=== PATIENT | female | born 1935 | race Caucasian/White ===

== ENCOUNTER 2017-02-17 09:26 | Inpatient (IN) | payer BC, MEDICARE, OTHER ==
[~2017-02-17] VITALS: Ht 160 cm; Wt 110.7 kg
[~2017-02-17 09:26] MED LIST: ALLOPURINOL100 MG PO; ASPIR 8181 MG PO; ASPIR-LOW81 MG; ATIVAN0.5 MG PO; CIPRO500 MG; COLACE100 MG PO; DEMADEX100 MG; DIOVAN320 MG; HUMULIN-R100 UNITS/; HYDRALAZINE HCL25 MG; IRON325 MG PO; ISOSORBIDE DINI30 MG; LANTUS100 UNITS/; LEVSIN0.125 MG; LORAZEPAM2 MG; LOVENOX60 MG/0.6; METOPROLOL SUCC25 MG PO; MINITRAN1 EAC1; NEXIUM40 MG; NOVOLOG100 UNITS/; PRAVASTATIN SOD80 MG PO; PROTONIX40 MG PO; RANEXA1000 MG PO; SYNTHROID200 MCG; TICLOPIDINE HC250 MG; TOPROL XL100 MG; TORSEMIDE20 MG PO; ZETIA10 MG; [UNRECOGNIZED DRUG - OTHER]
[2017-02-17] MEDS ORDERED: HYDROMORPHONE 1MG/1ML INJ IV STA (09:55)
[2017-02-17] MEDS ORDERED: DEXAMETHASONE SOD PHOS INJ 4 MG/ML VIAL IV ONE (10:00)
[2017-02-17] MEDS ORDERED: HYDROMORPHONE 2MG/ML INJ IV ONE (10:20)
[2017-02-17] MEDS ORDERED: ONDANSETRON HCL INJ 2 MG/ML VIAL IV ONE (10:20)
[2017-02-17] MEDS ORDERED: MAALOX/LIDOCAINE/BENADRYL 120 ML BTL PO ONE (10:30)
--- NOTE | 2017-02-17 11:08 | Diagnostic Imaging Report ---
History: Low back pain and sciatica Comparison studies: None Technique: Axial images were obtained from T11 through the sacrum. Coronal and sagittal images reconstructed from the axial data. Intravenous contrast: None Findings: Number of non-rib bearing vertebral bodies: 5 Alignment: Normal lordosis. No scoliosis. Soft tissues: No abnormalities. Paraspinal muscles: Unremarkable. Vertebrae: No fractures or infection. Lytic lesion with a permeated appearance is seen at the right iliac bone with loss of fat plane with the ipsilateral iliac is muscle. Partially visualized a second lytic lesion is seen at the right acetabular roof. Degenerative changes: Partially visualized decreased intervertebral space and endplate sclerosis with vacuum phenomenon at T11-T12. L1-L2: No abnormalities. L2-L3: Asymmetric left disc bulge results in mild left foraminal narrowing L3-L4: Mild facet hypertrophy with patent canal and foramina L4-L5: Disc degeneration with decreased intervertebral space. Asymmetric left disc bulge, moderate facet hypertrophy and ligamentum flavum thickening results in mild canal stenosis and mild bilateral foraminal narrowing. L5-S1: No abnormalities. Sacroiliac joints: Mild degenerative changes. Atherosclerotic calcifications of the abdominal aorta and branches. Partially visualized inferior vena cava filter. Partially visualized soft tissue thickening of the left medial pleura. And spiculated right lower lobe 1.5 cm nodule. IMPRESSION: 1. No acute spinal abnormality. 2. Moderate facet hypertrophy and asymmetric left disc bulge at L4-L5 results in mild canal stenosis and mild bilateral foraminal narrowing. Other degenerative changes as described above. 3. Lytic lesion in the right iliac bone, metastatic deposits is suspected, nonemergent further evaluation recommended. 4. Pleural-based medial left soft tissue thickening. Partially visualized 1.5 cm spiculated nodule in the right lower lobe. Further evaluation with CT thorax is recommended. Signed by: DR Jacinto Skinner M.D. on 02/17/2017 11:05 AM
[2017-02-17] MEDS ORDERED: MORPHINE SULFATE 2 MG/ML SYR IV STA (13:11)
[2017-02-17 15:30] LABS: BASOPHILS % 0.4 % (0.0-1.0); EOSINOPHILS # (AUTO) 0.3 (0.0-0.4); EOSINOPHILS % 3.6 % (0.0-6.0); HEMATOCRIT 36.1 % (34.2-44.1); HEMOGLOBIN 11.5 g/dL (12.0-16.0); LYMPHOCYTES # (AUTO) 0.7 (1.0-3.2); LYMPHOCYTES % 9.5 % (18.0-39.1); MEAN CORPUSCULAR HEMOGLOBIN 31.9 pg (28-32); MEAN CORPUSCULAR HGB CONC 31.9 g/dL (31-35); MEAN CORPUSCULAR VOLUME 100.3 fL (81-99); MONOCYTES # (AUTO) 0.6 (0.2-0.8); MONOCYTES % 7.6 % (4.4-11.3); NEUTROPHILS # (AUTO) 5.7 (2.1-6.9); NEUTROPHILS % 78.5 % (38.7-80.0); PLATELET COUNT 207 x10e3/uL (140-360); RED CELL DISTRIBUTION WIDTH 14.4 % (11.7-14.4)
[2017-02-17] MEDS ORDERED: ONDANSETRON HCL INJ 2 MG/ML VIAL IV PRN (15:30)
[2017-02-17] MEDS ORDERED: SODIUM CHLORIDE FLUSH 10 ML SYR INJ PRN (15:30)
[2017-02-17] MEDS ORDERED: HYDROMORPHONE 1MG/1ML INJ IV PRN (15:30)
[2017-02-17 15:41] LABS: ALBUMIN 3.1 g/dL (3.5-5.0); ALBUMIN/GLOBULIN RATIO 0.7 (0.8-2.0); CALCIUM 9.8 mg/dL (8.4-10.2); CREATININE, SERUM 1.97 mg/dL (0.57-1.11)
[2017-02-17] MEDS ORDERED: ISOSORBIDE MONO20 MG PO (18:02)
[2017-02-17] MEDS ORDERED: LEVOTHYROXINE50 MCG PO (18:18)
[2017-02-17] MEDS ORDERED: NITROGLYCERIN0.4 MG SL (18:18)
[2017-02-17] MEDS ORDERED: LINZESS PO (18:18)
[2017-02-17] MEDS ORDERED: NORCO 5-325 TA1 EACH PO (18:18)
[2017-02-17] MEDS ORDERED: VITAMIN D400 UNIT PO (18:18)
[2017-02-17] MEDS ORDERED: NITROGLYCERIN1 EAC1 (18:18)
[2017-02-17] MEDS ORDERED: [UNRECOGNIZED DRUG - OTHER] PO (18:18)
[2017-02-17] MEDS ORDERED: SIMVASTATIN40 MG PO (18:19)
[2017-02-17] MEDS ORDERED: NOVOLOG100 UNITS1 (18:19)
--- NOTE | 2017-02-17 18:19 | Diagnostic Imaging Report ---
PROCEDURE:CT CHEST WITHOUT CONTRAST COMPARISON:CT lumbar spine 1025 hrs., chest x-ray 12/06/12 INDICATIONS:SPICULATED RIGHT LOWER LOBE MASS TECHNIQUE: Axial CT images of the chest were obtained from the lung apices to the adrenal glands. Coronal and sagittal reformations were made available for review. No intravenous contrast was administered. RADIATION DOSE: Total DLP: 436.2 mGy*cm Estimated effective dose: (DLP x 0.014 x size factor) mSv FINDINGS: Lungs: Right lung: Diffusely hyperinflated. There is prominent smooth pulmonary interstitium and diffuse bronchial wall thickening and surgical bronchiectasis. A posterior layering effusion measures 12 mm in the costophrenic angle with overlying atelectasis. There is posterior upper lobe subsegmental atelectasis. Wispy basilar subsegmental atelectasis are also present in the anterior upper lobe and middle lobe. There is no discrete mass. Left lung: Mild volume loss of the left hemithorax. Diffusely hyperinflated with smooth thickening of the pulmonary interstitium. There is subsegmental atelectasis of the posterior basal segment of the lower lobe and band of subsegmental atelectasis throughout the lingula and upper lobe. There is no discrete mass. An inferior and posterolateral pleural effusion measures 9 mm. There is subpleural fat deposition in the anterior chest between ribs 4 through 6. Pleura:There is no evidence of pneumothorax. Heart \T\ Mediastinum:The heart is enlarged with cardiac bypass changes and extensive calcifications of the coronary arteries. There are indications of aortic and mitral valves. No pericardial effusion. The esophagus is collapsed. Lymph nodes: No enlarged axillary or supraclavicular lymph nodes. Mediastinal lymph nodes measure up to 16 mm. Thyroid/base of neck: The thyroid gland is normal in size. A calcified nodule in the left lobe measures 10 mm. Upper abdomen:The liver appears enlarged without evidence of mass. The gallbladder is absent. There is diffuse pancreas lipomatosis. The spleen is normal in size. No adrenal mass. Extensive calcifications are present throughout the aorta and celiac artery. Musculoskeletal:Wedging of T11 with inferior endplate compression and vacuum disc phenomenon at T11-12. The spinal canal at this level is patent. There are moderate degenerative changes throughout the spine superimposed on dextroscoliosis of the upper thoracic spine. There is a healing fracture of the left seventh rib, posterior aspect. There are no lytic lesions. CONCLUSION: 1. The abnormality in the right posterior costophrenic angle on lumbar spine CT is not visualized on this exam. However, a pleural effusion has developed in the interim with associated atelectasis. The abnormality in the medial left lower lobe on lumbar spine CT corresponds to subsegmental atelectasis. 2. COPD and multifocal atelectasis in the right and left lungs. Prominence of the pulmonary interstitium is suggestive of CHF. 3. Chronic bronchitis and mild clinical bronchiectasis. 4. Cardiomegaly with postoperative changes as described above. Severe atherosclerosis. 5. Calcified nodule in the left thyroid lobe. 6. Suspect hepatomegaly. Pancreas lipomatosis. 7. Wedging of T11 as described above. 8. Healing left posterior rib fracture. Dictated by: Justin Sheldon M.D. on 02/17/2017 at 18:28 Electronically approved by: Justin Sheldon M.D. on 02/17/2017 at 18:28
[2017-02-17] MEDS ORDERED: INSULIN GLARGINE SC (18:20)
[2017-02-17] MEDS: HYDROMORPHONE 2MG/ML INJ IV PRN (18:26)
[2017-02-17] MEDS ORDERED: DEXTROSE 50% SYRINGE 50 ML IV PRN (18:30)
[2017-02-17 19:00] VITALS: BP 141/63
[2017-02-17 19:45] VITALS: BP 141/63
[2017-02-17] MEDS: PREDNISONE 10 MG TAB PO SCH (21:22)
[2017-02-17] MEDS: INSULIN REGULAR, HUMAN 100 UNIT/1 ML 3ML VIAL SQ SCH (21:22)
[2017-02-18] MEDS ORDERED: METOPROLOL TART25 MG PO (00:52)
[2017-02-18 04:00] VITALS: BP 120/55
[2017-02-18 08:26] VITALS: BP 156/70
[2017-02-18] MEDS: LIDOCAINE 5% PATCH TP SCH (08:44)
[2017-02-18] MEDS: PREDNISONE 10 MG TAB PO SCH ×3 (08:44→23:18)
[2017-02-18] MEDS: INSULIN REGULAR, HUMAN 100 UNIT/1 ML 3ML VIAL SQ SCH ×4 (08:51→22:00)
[2017-02-18] MEDS: HYDROMORPHONE 2MG/ML INJ IV PRN ×3 (09:17→17:58)
[2017-02-18] MEDS ORDERED: NITROGLYCERIN 0.4 MG SUBL SL SCH (09:30)
[2017-02-18] MEDS ORDERED: NITROGLYCERIN 0.4 MG SUBL SL PRN (09:30)
[2017-02-18] MEDS ORDERED: CHOLECALCIFEROL 400 UNIT TAB PO SCH (10:30)
[2017-02-18] MEDS: HYDROCODONE/APAP 5MG-325MG TAB PO PRN (11:19)
--- NOTE | 2017-02-18 11:48 | Diagnostic Imaging Report ---
Bone Scan, three-phase Reason for exam: 81 F with back and bilateral hip pain Radiopharmaceutical: Tc-99m MDP 27 mCi Comparison: CT lumbar spine 02/17/2017 Following intravenous administration of the radiopharmaceutical, dynamic flow and immediate blood pool images of the pelvis and hips followed by delayed selected spot images were obtained. Flow and blood pool images show diffusely symmetric distribution of tracer activity to the lower lumbar spine, pelvis and hips with focal markedly increased tracer in the left intertrochanteric femur and subtly increased tracer is the right iliac wing. There is also a sort tissue vascular blush in the right hemipelvis on the blood pool images. Focal markedly increased tracer is seen in the left intertrochanteric femur. An additional focus of increased tracer is seen in the superior spine of the right iliac wing. Impression: 1. Acute osteoblastic process in the intertrochanteric left femur may be due to trauma such as recent fracture or bone metastasis. Inflammatory process is much less likely. 2. Vascular blush in the right hemipelvis is worrisome for mass versus large arteriovenous malformation. CT abdomen is warranted. 3. Total body bone scan is indicated to complete metastatic work-up. Signed by: Dr. Nena Arango M.D. on 02/18/2017 11:44 AM
[2017-02-18 11:59] VITALS: BP 172/84
--- NOTE | 2017-02-18 13:55 | Diagnostic Imaging Report ---
CT Abdomen And Pelvis without Intravenous Contrast INDICATION: Iliac metastases TECHNIQUE: Thin collimation axial images obtained from the diaphragm to the level of the pubic symphysis. RADIATION DOSE: Total DLP: 843.4 mGy*cm Estimated effective dose: (DLP x 0.015 x size factor) mSv CTDIvol has been reviewed. It is below the limits set by the Radiation Protocol Committee (RPC). COMPARISON: CT lumbar spine 02/17/2017, bone scan 02/17/2017. ABDOMEN FINDINGS: Lung Bases: Patchy bibasilar airspace opacities suggestive atelectasis. There is more confluent atelectasis in the posterior costophrenic angles. Small pleural effusions are present. No discrete soft tissue mass. The heart is enlarged with coronary artery calcifications. Visualized medial sternotomy wires are intact. Liver: Normal attenuation. No evidence for mass. Gallbladder: Present and appears normal. No biliary ductal dilatation. Pancreas: Diffuse fatty atrophy without mass or ductal dilatation. Spleen: Normal in size. No evidence of mass. A splenule in the anterior left upper quadrant measures 10 mm. Adrenal Glands: No evidence for mass. Kidneys: Right: Atrophic. No hydronephrosis or cortical mass. Left: Atrophic. No hydronephrosis or cortical mass. No cortical mass. No hydronephrosis. Lymph Nodes: No enlarged abdominal or periaortic lymph nodes. Aorta: Diffusely calcified as are the celiac and superior mesenteric arteries. No aneurysmal dilatation. IVC filter terminates below the confluence of the renal veins PELVIS FINDINGS: Bowel: Small Bowel: Normal in caliber with normal wall thickness. Large Bowel: Diverticulosis coli. No associated inflammation. Appendix: Not visualized and may be absent or collapsed. Bladder: Normal. The uterus is absent. There are no adnexal masses. There is a small amount of presacral edema. No mesenteric, pelvic, or inguinal lymph nodes. Bones: There is a lytic lesion in the roof of the right acetabulum and a permeative lesion in the right iliac weighing with associated soft tissue swelling. There is a lytic lesion in the posterior aspect of S1. Wedging of the T11 vertebral body is present with associated vacuum disc phenomenon at T11-12. There are no lytic or blastic lesions in the visualized ribs. Soft tissues: Umbilical hernia contains fat with an aperture of 4 cm. No fluid in the hernia sac. There is edema in the lateral flanks. No solid soft tissue mass to suggest neoplasm. IMPRESSION: 1. No soft tissue mass or lymphadenopathy in the abdomen or pelvis to suggest a neoplastic process. 2. Osseous metastases as described above. 3. Diverticulosis coli. No evidence for bowel obstruction or inflammation. 4. Atrophic kidneys. 5. Atherosclerosis. IVC filter. 6. Bibasilar airspace opacities suggestive of atelectasis and small pleural effusions. Small airways disease. 7. Severe pancreas lipomatosis. Signed by: Dr. Justin Sheldon MD on 02/18/2017 1:51 PM
--- NOTE | 2017-02-18 14:56 | Diagnostic Imaging Report ---
Hip complete CPT code: 72334 Indication: Metastatic bone lesions Technique: AP and frogleg views of left hip obtained. Comparison: Bone scan 01/18/2017, CT abdomen/pelvis related 01/19/2017 Findings: No evidence of fracture or dislocation. Increased metabolic activity in the left femoral neck on bone scan corresponds to a permeative lesion barely visible in the lesser trochanter on CT. It is not visible radiographically. The focus of metabolic activity in the right iliac crest is not visible by x-ray.. The lytic lucency on CT in the roof of the right acetabulum is not visible by x-ray. Diffuse atherosclerotic calcifications are present. IMPRESSION: 1. Left hip properly located. No convincing evidence for fracture. 2. Permeative hypermetabolic lesion in the proximal left femur is poorly visualized radiographically and is barely visible by CT. 3. A lytic lesion in the roof of the right acetabulum is not visible radiographically. 4. Permeative lesion in the right iliac wing is not visible by x-ray. Signed by: Dr. Justin Sheldon MD on 02/18/2017 2:52 PM
[2017-02-18 16:19] VITALS: BP 160/76
[2017-02-18] MEDS: [UNRECOGNIZED DRUG - OTHER] PO SCH (17:00)
[2017-02-18] MEDS ORDERED: ENOXAPARIN SOD INJ 40 MG/0.4 ML SYR SC SCH (17:00)
[2017-02-18] MEDS: METOPROLOL TARTRATE 25 MG TAB PO SCH (17:01)
[2017-02-18] MEDS: PANTOPRAZOLE SODIUM 40 MG SUSPDR.PKT PO SCH (17:01)
[2017-02-18] MEDS: ALLOPURINOL 100 MG TAB PO SCH (17:02)
[2017-02-18] MEDS: ENOXAPARIN 30 MG/0.3 ML SYR SC SCH (17:02)
--- NOTE | 2017-02-18 18:08 | History and Physical ---
CHIEF COMPLAINT: Intractable pain to the lower back and hip. HISTORY OF PRESENT ILLNESS: A 81-year-old female patient with a history of degenerative joint disease, congestive heart failure, coronary artery disease, diabetes mellitus, wheelchair bound, has chronic pain from arthritis. However, lately her pain was getting worse. Patient was seen by orthopedics and scheduled to have a CT. She came to the office with worsening pain and unable to transfer. Patient was localizing the pain to the lower back, both hips and also was having vomiting and dry heaves. She was given Phenergan injection, and prescribed fentanyl. Patient slept at home. However, she had pain that got worse, so she came to the emergency room. Patient had a CT of the lumbar spine, which showed questionable osteolytic lesion on the right iliac bone, metastatic deposits suspected, and arthritic changes of L4 and L5 spine noted. Also, incidental finding of 1.5 cm spiculated right lower lobe mass noted. She was admitted for pain control and workup for her pain. Her CT of the chest was done and was negative for any mass on the right or left lung. However, there was nonspecific changes including subsegmental atelectasis of the lung. Prominence of the pulmonary interstitium suggesting COPD changes noted. Calcified thyroid lobe noted. Bone scan done showing acute osteoblastic process in the intertrochanteric left femur was noted suggesting bone mets versus trauma. Also, vascular brushing in the right hemipelvis worrisome for mass with a large AV malformation noted. Indicated to have a complete metastatic workup. PAST MEDICAL HISTORY: Congestive heart failure, coronary artery disease, hypertension, diabetes mellitus, osteoarthritis of left lateral ankle, diabetic foot ulcer, healed, history of DVT and PE, status post IVC filter placement, hyperlipidemia, diabetic neuropathy, chronic kidney disease. SURGICAL HISTORY: Coronary artery bypass surgery, IVC filter placement, ventral hernia. MEDICATIONS 1. Nitroglycerin. 2. Regular insulin. 3. Prednisone 10 mg t.i.d. 4. Pantoprazole. 5. Simvastatin 40 mg daily. 6. Levothyroxine 150 mcg daily. 7. Allopurinol 200 mg b.i.d. 8. Isosorbide 20 mg daily. 9. Ranexa 1000 mg q.12 h. 10. Zofran. 11. Hydromorphone IV p.r.n. ALLERGIES: AMOXICILLIN, ATORVASTATIN, CLOPIDOGREL, IODINE, TETRACYCLINE. PERSONAL HISTORY: No history of smoking, alcohol or drugs. PHYSICAL EXAMINATION VITALS: Weight of 240 pounds, height 63 inches. Blood pressure 120/55, temperature 97.7. HEENT: Normal. NECK: Normal. LUNGS: Clear. CV: Normal. ABDOMEN: Soft and protuberant. Umbilical ventral hernia present. Bowel sounds normal. LOWER EXTREMITIES: Two plus edema present. The patient is extremely uncomfortable, weak and deconditioned. Has generalized pain. No focal weakness. However, she is deconditioned. Needs assistance for transfer. LABS: CBC: White count 7.26, hemoglobin 11.5 and platelets 207,000. Chemistry: Sodium 113, potassium 4, BUN 20, creatinine 0.97. ASSESSMENT 1. Acute intractable pain, cause unspecified: Possible metastatic lesion to be ruled out. 2. Chronic kidney disease. 3. Congestive heart failure, diastolic. 4. Chronic hypothyroidism. PLAN: Oncology consultation with Dr. Morocho. Pain control. Job#: [id number] [place]
[2017-02-18 20:00] VITALS: BP 123/62
[2017-02-18] MEDS: RANOLAZINE 500 MG TABSR PO SCH (23:18)
[2017-02-18] MEDS: [UNRECOGNIZED DRUG - OTHER] SC SCH (23:19)
[2017-02-18] MEDS: SIMVASTATIN 40 MG TAB PO SCH (23:19)
[2017-02-19] VITALS (7 sets, daily range): BP systolic 110–137; BP diastolic 55–74
[2017-02-19] MEDS: HYDROMORPHONE 2MG/ML INJ IV PRN (01:43)
[2017-02-19] MEDS: LEVOTHYROXINE SODIUM 75 MCG TAB PO SCH (07:12)
[2017-02-19] MEDS ORDERED: POLYETHYLENE GLYCOL 3350 17 GM PACK PO PRN (07:45)
[2017-02-19] MEDS: LINZESS 72 MCG PO SCH (08:47)
[2017-02-19] MEDS: PANTOPRAZOLE SODIUM 40 MG SUSPDR.PKT PO SCH ×2 (08:47→16:59)
[2017-02-19] MEDS: ASPIRIN 81 MG CHEW TAB PO SCH (08:47)
[2017-02-19] MEDS: PREDNISONE 10 MG TAB PO SCH ×3 (08:48→22:01)
[2017-02-19] MEDS: ALLOPURINOL 100 MG TAB PO SCH ×2 (08:48→17:00)
[2017-02-19] MEDS: RANOLAZINE 500 MG TABSR PO SCH ×2 (08:48→22:01)
[2017-02-19] MEDS: LIDOCAINE 5% PATCH TP SCH (08:48)
[2017-02-19] MEDS: ISOSORBIDE MONONITRATE 20 MG TAB PO SCH (08:48)
[2017-02-19] MEDS: [UNRECOGNIZED DRUG - OTHER] PO SCH ×2 (08:48→16:39)
[2017-02-19] MEDS: METOPROLOL TARTRATE 25 MG TAB PO SCH ×2 (08:48→17:00)
[2017-02-19] MEDS: HYDROCODONE/APAP 5MG-325MG TAB PO PRN ×2 (08:52→15:22)
[2017-02-19] MEDS: INSULIN REGULAR, HUMAN 100 UNIT/1 ML 3ML VIAL SQ SCH ×4 (08:52→21:00)
[2017-02-19 10:00] LABS: BASOPHILS % 0.1 % (0.0-1.0); EOSINOPHILS % 0.1 % (0.0-6.0); HEMATOCRIT 29.8 % (34.2-44.1); HEMOGLOBIN 9.5 g/dL (12.0-16.0); LYMPHOCYTES # (AUTO) 0.7 (1.0-3.2); MEAN CORPUSCULAR HEMOGLOBIN 32.2 pg (28-32); MEAN CORPUSCULAR HGB CONC 31.9 g/dL (31-35); MONOCYTES # (AUTO) 0.7 (0.2-0.8); MONOCYTES % 6.7 % (4.4-11.3); NEUTROPHILS # (AUTO) 8.5 (2.1-6.9); NEUTROPHILS % 85.6 % (38.7-80.0); PLATELET COUNT 218 x10e3/uL (140-360); RED BLOOD COUNT 2.95 x10e6/uL (3.6-5.1)
--- NOTE | 2017-02-19 10:23 | Consultation ---
DATE OF CONSULTATION: February 18, 2017 REFERRING PHYSICIAN: Dr. Hills. HPI: Patient is a 81-year-old female admitted to the hospital with complaints of severe back pain as well as some constipation. Workup has revealed possible metastatic lesions in the iliac bone with findings that suggest the back pain may due to a spinal process. However, CT of the abdomen was done which revealed an umbilical hernia. Patient says she has had that hernia for a long time and has never caused her any problems. She denies any nausea or vomiting. She does complain of some constipation. Patient has bone lesions suspicious for metastatic disease seen on CT of the abdomen and pelvis. PAST MEDICAL HISTORY: Significant for multiple medical problems, diabetes, hypothyroidism, hypertension, hypercholesterolemia, and chronic constipation. MEDICATIONS: Listed in the chart. ALLERGIES: AMOXICILLIN, ATORVASTATIN, PLAVIX, IODINE, AND TETRACYCLINE. FAMILY HISTORY: Noncontributory. SOCIAL HISTORY: Noncontributory. REVIEW OF SYSTEMS: As stated above, otherwise was negative. PHYSICAL EXAMINATION GENERAL: The patient is awake and alert. VITAL SIGNS: Normal. HEENT: No scleral icterus. NECK: No masses. LUNGS: Equal breath sounds are clear. CARDIAC: Regular rate and rhythm with no murmur. ABDOMEN: Soft. There is mild distention. There is no significant tenderness. There is an umbilical hernia present which is nontender and reducible. EXTREMITIES: No edema. LAB TESTS: White blood cell count is normal. Hemoglobin 11.5, hematocrit 36. Chemistries: Elevated glucose. BUN 28, creatinine 1.97. Alkaline phosphatase elevated 240. ASSESSMENT: A 81-year-old female with diffuse pain, most likely due to what seems to be possibly bony disease, possibly from bony metastasis, although primary is not clear. The umbilical hernia is asymptomatic. It has been present for a long time and no intervention is needed for this. Thank you for asking me to see Ms. Couch. Job#: [id number] [place]
[2017-02-19 10:24] LABS: ALBUMIN 2.6 g/dL (3.5-5.0); ALBUMIN/GLOBULIN RATIO 0.7 (0.8-2.0); CALCIUM 8.9 mg/dL (8.4-10.2); CREATININE, SERUM 1.83 mg/dL (0.57-1.11)
[2017-02-19 10:44] LABS: FERRITIN 187.72 ng/mL (4.63-204.00)
[2017-02-19 10:58] LABS: ANION GAP 12.8 mmol/L (8-16); POTASSIUM 4.8 mmol/L (3.5-5.1)
[2017-02-19 11:10] LABS: FOLATE 10.8 ng/mL (7.0-15.4)
[2017-02-19 13:58] LABS: BILIRUBIN,URINE 3+ (NEGATIVE); CLARITY,URINE CLEAR (CLEAR); COLOR,URINE YELLOW (YELLOW); KETONES,URINE 3+ (NEGATIVE); LEUKOCYTE ESTERASE ,URINE 1+ (NEGATIVE); URINE UROBILINOGEN 12 mg/dL (0.2 - 1)
[2017-02-19 13:59] LABS: NITRITE,URINE POSITIVE (NEGATIVE); PROTEIN,URINE DIPSTICK TRACE (NEGATIVE)
[2017-02-19 14:15] LABS: BACTERIA,URINE FEW /HPF; EPITHELIAL CELLS,URINE MODERATE /LPF; RBC,URINE 0-5 /HPF (0-5); WBC,URINE (MAN) 0-5 /HPF (0-5)
[2017-02-19] MEDS: IRON SUCROSE 200 MG in SODIUM CHLORIDE 0.9% 100 ML 100 ML IV SCH (16:59)
[2017-02-19] MEDS: ENOXAPARIN 30 MG/0.3 ML SYR SC SCH (17:00)
[2017-02-19] MEDS: SIMVASTATIN 40 MG TAB PO SCH (22:01)
[2017-02-19] MEDS: [UNRECOGNIZED DRUG - OTHER] SC SCH (22:01)
[2017-02-20] VITALS: BP 139/59
[2017-02-20 04:00] VITALS: BP 141/65
[2017-02-20] MEDS: HYDROCODONE/APAP 5MG-325MG TAB PO PRN (04:09)
[2017-02-20 06:29] LABS: BASOPHILS % 0.3 % (0.0-1.0); HEMATOCRIT 30.5 % (34.2-44.1); HEMOGLOBIN 9.9 g/dL (12.0-16.0); LYMPHOCYTES # (AUTO) 0.8 (1.0-3.2); LYMPHOCYTES % 11.3 % (18.0-39.1); MEAN CORPUSCULAR HEMOGLOBIN 32.6 pg (28-32); MEAN CORPUSCULAR HGB CONC 32.5 g/dL (31-35); MEAN CORPUSCULAR VOLUME 100.3 fL (81-99); MONOCYTES # (AUTO) 0.6 (0.2-0.8); MONOCYTES % 8.4 % (4.4-11.3); NEUTROPHILS # (AUTO) 5.9 (2.1-6.9); NEUTROPHILS % 79.2 % (38.7-80.0); PLATELET COUNT 205 x10e3/uL (140-360); RED BLOOD COUNT 3.04 x10e6/uL (3.6-5.1); RED CELL DISTRIBUTION WIDTH 13.8 % (11.7-14.4)
[2017-02-20] MEDS: LEVOTHYROXINE SODIUM 75 MCG TAB PO SCH (06:34)
[2017-02-20 07:18] LABS: ALBUMIN 2.6 g/dL (3.5-5.0); ALBUMIN/GLOBULIN RATIO 0.7 (0.8-2.0); ANION GAP 10.2 mmol/L (8-16); CREATININE, SERUM 1.74 mg/dL (0.57-1.11); POTASSIUM 5.2 mmol/L (3.5-5.1)
[2017-02-20 07:40] VITALS: BP 142/65
[2017-02-20] MEDS: LINZESS 72 MCG PO SCH (09:00)
[2017-02-20] MEDS: METOPROLOL TARTRATE 25 MG TAB PO SCH ×2 (09:00→17:54)
[2017-02-20] MEDS: PANTOPRAZOLE SODIUM 40 MG SUSPDR.PKT PO SCH ×2 (09:00→17:53)
[2017-02-20] MEDS: [UNRECOGNIZED DRUG - OTHER] PO SCH ×2 (09:00→17:00)
[2017-02-20] MEDS: INSULIN REGULAR, HUMAN 100 UNIT/1 ML 3ML VIAL SQ SCH ×4 (09:30→21:17)
[2017-02-20] MEDS: CYANOCOBALAMIN 1,000 MCG TAB PO SCH (09:42)
[2017-02-20] MEDS: LIDOCAINE 5% PATCH TP SCH (09:42)
[2017-02-20] MEDS: RANOLAZINE 500 MG TABSR PO SCH ×2 (09:42→21:17)
[2017-02-20] MEDS: ALLOPURINOL 100 MG TAB PO SCH ×2 (09:42→17:54)
[2017-02-20] MEDS: ISOSORBIDE MONONITRATE 20 MG TAB PO SCH (09:42)
[2017-02-20] MEDS: ASPIRIN 81 MG CHEW TAB PO SCH (09:42)
[2017-02-20] MEDS: PREDNISONE 10 MG TAB PO SCH ×3 (09:42→21:16)
[2017-02-20 11:44] VITALS: BP 128/61
[2017-02-20] MEDS: FENTANYL 25 MCG/HR PATCH TOP SCH (12:01)
[2017-02-20] MEDS: IRON SUCROSE 200 MG in SODIUM CHLORIDE 0.9% 100 ML 100 ML IV SCH (15:00)
[2017-02-20] MEDS: ENOXAPARIN 30 MG/0.3 ML SYR SC SCH (17:54)
[2017-02-20 20:44] VITALS: BP 135/63
[2017-02-20] MEDS: [UNRECOGNIZED DRUG - OTHER] SC SCH (21:00)
[2017-02-20] MEDS: SIMVASTATIN 40 MG TAB PO SCH (21:17)
[2017-02-21] VITALS (9 sets, daily range): BP systolic 131–187; BP diastolic 66–84
[2017-02-21] MEDS: HYDROCODONE/APAP 5MG-325MG TAB PO PRN (01:20)
[2017-02-21] MEDS: LEVOTHYROXINE SODIUM 75 MCG TAB PO SCH (05:25)
--- NOTE | 2017-02-21 08:17 | Consultation ---
DATE OF CONSULTATION: February 20, 2017 NEUROLOGICAL CONSULTATION Patient of Dr. Hills. TIME: 1:15 in the evening. REASON FOR CONSULTATION: Chronic back pain. HISTORY: This is a 81-year-old female who has a chronic history of low back pain, radiating to both hips. In the last 2 months, she says this pain has been getting worse, going to the left hip and then to the right hip, has been unable to ambulate. She has been evaluated by orthopedic surgeon, who apparently did some x-ray of the lumbar spine and was giving just pain medication. The pain has been getting worse, the reason for which she came to the hospital for further evaluation. PAST HISTORY: Patient has multiple medical problems including diabetes, hypertension, chronic constipation. SURGERY: She has coronary artery bypass, appendectomy, cholecystectomy, hysterectomy, and surgery of the back and of the right ankle for which reason she has been having difficulty ambulation, was able to ambulate with a walker. The patient denies any headaches. There is no dizziness. No visual disturbance. No speech, no swallowing difficulty. She has long history of complaining of paresthesia of both feet, numbness, tingling sensation going up to below the knee. SOCIAL HISTORY: Noncontributory. GENERAL PHYSICAL EXAMINATION: VITAL SIGNS: She is an obese patient weighing 240 pounds with as mentioned multiple medical problems. Blood pressure was 120/61, pulse 51, temperature 96. LUNGS: Clear to auscultation. HEART: Regular sinus rhythm. ABDOMEN: Complaining of some abdominal pain. MUSCULOSKELETAL: Right lower extremity is edematous up to below the knee. Left leg, no edema, no clubbing. Chronic low back pain. NEUROLOGICAL EXAMINATION: Patient lying down in bed. The right leg as mentioned is swollen. MENTAL STATUS: She is alert. She is oriented x3. Speech clear. CRANIAL NERVES: were normal. MOTOR: Upper extremities, no evidence of weakness in either proximal or distal muscles, neither evidence of wasting of the muscles. Lower extremity, edematous right lower leg. Patient has difficulty in elevating the legs against gravity. Flexion of the hips 4/5 bilaterally, flexion and extension of the knees 5/5, dorsiflexion of the ankle 5/5 on the left and 4/5 on the right, plantarflexion 5/5 on the left and 4/5 on the right. She has limited motion of the ankle because of the surgery. Sensory examination to touch and pinprick, there is hyperesthesia in the stocking distribution of both lower extremities. Vibration sense is absent up to the ankles. Hip motion, internal and external rotation not painful. LABORATORY WORKUP: Reviewing the laboratory workup, CBC: White count 7400 with hemoglobin 9.9, hematocrit 38.5, and platelets 205,000. Chemistry: Sodium 131, potassium 5.2, BUN 46, creatinine is 1.74. Estimated GFR 28. Glucose 267. Liver enzymes are in the normal range. Alkaline phosphatase is elevated 174. Urinalysis, no evidence of infection. IMAGING: CT scan of the lumbar spine showed no evidence of acute abnormality. There is moderate facet hypertrophy and asymmetrical left disk bulge at L4-L5 resulting in mild canal stenosis and mild bilateral foraminal narrowing and diffuse degenerative changes described of the lumbar spine. Lytic lesion in the right iliac bone, metastasis should be ruled out. IMPRESSION: 1. Chronic low back pain secondary to spondylosis. 2. Diabetes mellitus type 2. 3. Peripheral neuropathy, diabetic type, lower extremities. 4. Obesity. 5. Hypertension. RECOMMENDATIONS: Conservative therapy. Continue with pain medication, probably will be pain management for her back. The lytic lesion in the right hip should be ruled out for metastasis, workup is in the process. I explained the patient and her relative present there that there is no evidence to an historical condition of the lower back. The lower back should be treated conservatively. Will follow closely. Thank you. Job#: [id number]
[2017-02-21] MEDS: METOPROLOL TARTRATE 25 MG TAB PO SCH ×2 (08:18→16:48)
[2017-02-21] MEDS: [UNRECOGNIZED DRUG - OTHER] PO SCH ×2 (09:00→17:00)
[2017-02-21] MEDS: LINZESS 72 MCG PO SCH (09:00)
--- NOTE | 2017-02-21 09:05 | Diagnostic Imaging Report ---
Exam: Skeletal survey History: Metastatic disease Comparison: CT abdomen and pelvis without contrast 02/18/2017,, nuclear medicine bone scan 02/17/2017 Findings: Anterior compression deformity of T11 is again noted, as seen on comparison CT. No lytic or blastic lesions are identified in the calvarium. Lytic lesion in the right iliac wing with associated soft tissue component described on comparison CT as well as the lytic lesion in the right acetabular roof are poorly visualized radiographically. Similarly, the left intertrochanteric femoral permeative lesion described on the nuclear medicine bone scan is poorly visualized radiographically. No additional osseous destructive lesions are identified in the visualized appendicular skeleton Lucent lesions in the right scaphoid and capitate are likely degenerative in nature. Postsurgical changes related to resection of the distal right fibula and surgical hardware within the distal tibia. No osseous destructive lesion. Advanced bilateral joint space narrowing with associated marginal erosions involving the proximal and distal interphalangeal joints of the fingers, with associated first carpometacarpal degenerative joint disease. The metacarpophalangeal joints are relatively well-maintained. IVC filter is noted. Postsurgical changes of the mediastinum. Medial left lower lobe airspace opacity described on comparison lumbar spine CT is poorly visualized radiographically. Impression: No plain radiographic evidence of calvarial or appendicular skeletal metastases. Postsurgical and inflammatory arthritic changes as above. Pelvic and left femoral metastases described on comparison CT and nuclear medicine examinations are radiographically occult. Signed by: Dr. Hayes Minaya M.D. on 02/21/2017 9:01 AM
[2017-02-21] MEDS: INSULIN REGULAR, HUMAN 100 UNIT/1 ML 3ML VIAL SQ SCH ×4 (09:20→22:10)
[2017-02-21] MEDS: CYANOCOBALAMIN 1,000 MCG TAB PO SCH (09:44)
[2017-02-21] MEDS: ALLOPURINOL 100 MG TAB PO SCH ×2 (09:44→17:01)
[2017-02-21] MEDS: RANOLAZINE 500 MG TABSR PO SCH ×2 (09:44→22:10)
[2017-02-21] MEDS: LIDOCAINE 5% PATCH TP SCH (09:44)
[2017-02-21] MEDS: ASPIRIN 81 MG CHEW TAB PO SCH (09:44)
[2017-02-21] MEDS: PANTOPRAZOLE SODIUM 40 MG SUSPDR.PKT PO SCH ×2 (09:44→17:01)
[2017-02-21] MEDS: PREDNISONE 10 MG TAB PO SCH ×3 (09:44→22:10)
[2017-02-21] MEDS: ISOSORBIDE MONONITRATE 30 MG TAB CR PO SCH (09:45)
[2017-02-21 11:14] LABS: BASOPHILS % 0.1 % (0.0-1.0); HEMATOCRIT 31.6 % (34.2-44.1); HEMOGLOBIN 10.3 g/dL (12.0-16.0); LYMPHOCYTES # (AUTO) 0.8 (1.0-3.2); LYMPHOCYTES % 8.5 % (18.0-39.1); MEAN CORPUSCULAR HEMOGLOBIN 32.4 pg (28-32); MEAN CORPUSCULAR HGB CONC 32.6 g/dL (31-35); MEAN CORPUSCULAR VOLUME 99.4 fL (81-99); MONOCYTES # (AUTO) 0.7 (0.2-0.8); NEUTROPHILS # (AUTO) 8.1 (2.1-6.9); NEUTROPHILS % 83.3 % (38.7-80.0); PLATELET COUNT 259 x10e3/uL (140-360); RED BLOOD COUNT 3.18 x10e6/uL (3.6-5.1); RED CELL DISTRIBUTION WIDTH 13.7 % (11.7-14.4)
[2017-02-21 11:29] LABS: CALCIUM 8.6 mg/dL (8.4-10.2); CREATININE, SERUM 1.76 mg/dL (0.57-1.11)
[2017-02-21] MEDS: IRON SUCROSE 200 MG in SODIUM CHLORIDE 0.9% 100 ML 100 ML IV SCH (14:00)
--- NOTE | 2017-02-21 15:50 | Consultation ---
DATE OF CONSULTATION: February 21, 2017 REFERRING PHYSICIAN: Dr. Hooker. I would like to thank Dr. Hooker for asking me to see Ms. Couch in consultation. REASONS FOR CONSULTATION 1. Hip pain and back pain, chronic. 2. Metastatic bone disease. 3. Peripheral polyneuropathy of the lower extremities. 4. History of diabetes. 5. CHF. HISTORY: This 81-year-old female, with a history of DJD and congestive heart failure, who has been really not walking for the past year or 2 because of her ankle problems and neuropathy, came into the hospital because she was having significant pain, 1st to her left hip which started about 3 weeks ago and then, when her left hip started feeling better, her right hip started getting worse as far as pain. It was so bad, she had to get fentanyl. The patient had a CT of the lumbar spine, which showed a questionable osteolytic lesion on the right iliac bone as well as arthritic changes at L4-L5 spine. Also, there was a question of a spiculated mass in the right lower lobe. However, further workup did not show any mass. The patient, however, did have atelectasis of the lungs. Bone scan did show an acute osteoblastic process in the IT region of the left femur, and it was mets versus trauma. The patient does not remember falling. Also, there is a question of a possible mass in the pelvis. Workup with oncology has been initiated. In the meantime, rehab-lee, I am being asked to evaluate for rehab needs. PAST MEDICAL HISTORY 1. CHF. 2. Coronary artery disease. 3. Diabetes. 4. Right foot and ankle collapse. 5. 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 6. Hyperlipidemia. 7. Diabetic neuropathy. 8. CKD. SURGERIES: Include IVC placement as well as CABG as well as right ankle surgery/fusion. The patient states when she is sitting around, it does not really hurt that much; but when she gets up and moves, it does hurt mainly in her hips. She does not recall any falling. Sensory-lee, there has been no significant change either. She did get evaluation by Dr. Abraham from a neurologic standpoint and Dr. Meyer from an oncology standpoint. She did also get a CT of the lumbar spine. L1-2 showed no abnormalities. L2-3 showed a symmetric left disk bulge resulting in mild left foraminal narrowing. L3-4 showed mild facet hypertrophy with patent canal and foramina. L4-L5 showed degenerative disk with decreased intervertebral space, asymmetric left disk bulge, moderate facet hypertrophy, and ligamentum flavum thickening resulting in mild canal stenosis and mild foraminal narrowing. L5-S1: No abnormalities. Spiculated right lower lobe 1.5-cm nodule. Also, there was a lytic lesion seen on the right iliac bone. Metastatic deposit suspected. She had a bone scan, which showed an osteoblastic process in the IT left femur, which may be due to trauma such as recent fracture or bone metastases. Inflammatory process is much less likely. Vascular blush in the right hemipelvis is worrisome for mass versus large AVM. She also had a CT of the chest, which showed that the abnormality on the lumbar spine is not visualized on the exam, but there was a pleural effusion. COPD, cardiomegaly, wedging to T11 and a healing left rib fracture. She also had a pelvic x-ray, which showed a lytic lesion on the roof of the right acetabulum that is not visualized radiographically, neither is the lesion in the right iliac wing. PHYSICAL EXAMINATION GENERAL: The patient is awake, alert and oriented. Does not appear to be in much distress at this time. EYES: Gaze is conjugate. ORAL: Tongue is midline. NECK: Supple. HEART: Regular. LUNGS: Diminished breath sounds. Did not take a real deep breath. ABDOMEN: Nondistended. EXTREMITIES: Functional range of motion of the arms as well as the legs. I ranged the legs, and she was actually not having much pain to the hips bilaterally. However, the right ankle is in the dorsiflexed position. That is where she had surgery. She has minimal movement to the right ankle. MANUAL MUSCLE TESTIN-/5 strength in the upper extremities bilaterally. In the left lower extremity, 4-/5 strength throughout. In the right lower extremity, 3+/5 to 4-/5 strength. Again, she is not complaining of much pain to the hips or knees. She has minimal movement to the right ankle. SENSORY: She has diminished sensation to the feet, which is unchanged from before. IMPRESSION 1. Workup for metastatic bone lesions in progress. 2. Chronic pain syndrome. 3. Nonambulatory in the past year or 2 due to her feet being a problem. 4. 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 5. History of congestive heart failure. 6. Diabetes. 7. Peripheral neuropathy. PLAN: Right now, gait is not an issue. We will be focusing on transfers as that is what she was doing premorbidly. She lives with her friend and a son and was basically doing transfer training, pivot transfers to bedside commode and to the wheelchair to get around. If there really is a lesion in the IT area, may have to have orthopedic evaluation to make sure it is nothing that is an impending fracture. Also, if there is an acetabular issue, then there is a problem as well. By doing the transfers, that should make it easier for her. Will follow along with you. Thank you, once again, for allowing me to participate in the care of this very interesting patient. Job#: [id number] RENZO
[2017-02-21] MEDS: ENOXAPARIN 30 MG/0.3 ML SYR SC SCH (17:02)
[2017-02-21] MEDS: [UNRECOGNIZED DRUG - OTHER] SC SCH (22:10)
[2017-02-21] MEDS: SIMVASTATIN 40 MG TAB PO SCH (22:10)
[2017-02-22] VITALS: BP 132/60
[2017-02-22 04:00] VITALS: BP 174/74
[2017-02-22] MEDS: LEVOTHYROXINE SODIUM 75 MCG TAB PO SCH (07:05)
[2017-02-22 08:14] VITALS: BP 168/72
[2017-02-22] MEDS: LINZESS 72 MCG PO SCH (08:43)
[2017-02-22] MEDS: PANTOPRAZOLE SODIUM 40 MG SUSPDR.PKT PO SCH ×2 (08:43→18:26)
[2017-02-22] MEDS: INSULIN REGULAR, HUMAN 100 UNIT/1 ML 3ML VIAL SQ SCH ×4 (08:43→20:59)
[2017-02-22] MEDS: [UNRECOGNIZED DRUG - OTHER] PO SCH ×2 (08:43→17:00)
[2017-02-22] MEDS: ASPIRIN 81 MG CHEW TAB PO SCH (08:43)
[2017-02-22] MEDS: ALLOPURINOL 100 MG TAB PO SCH ×2 (08:44→18:27)
[2017-02-22] MEDS: METOPROLOL TARTRATE 25 MG TAB PO SCH ×2 (08:44→18:27)
[2017-02-22] MEDS: PREDNISONE 10 MG TAB PO SCH ×3 (08:44→20:58)
[2017-02-22] MEDS: CYANOCOBALAMIN 1,000 MCG TAB PO SCH (08:44)
[2017-02-22] MEDS: RANOLAZINE 500 MG TABSR PO SCH ×2 (08:44→20:58)
[2017-02-22] MEDS: ISOSORBIDE MONONITRATE 30 MG TAB CR PO SCH (08:44)
[2017-02-22] MEDS: LIDOCAINE 5% PATCH TP SCH (08:44)
[2017-02-22 12:46] VITALS: BP 169/69
[2017-02-22 16:22] VITALS: BP 156/69
[2017-02-22] MEDS: IRON SUCROSE 200 MG in SODIUM CHLORIDE 0.9% 100 ML 100 ML IV SCH (18:26)
[2017-02-22] MEDS: ENOXAPARIN 30 MG/0.3 ML SYR SC SCH (18:27)
--- NOTE | 2017-02-22 19:59 | Diagnostic Imaging Report ---
Bone Scan, delayed phase INDICATION: 81 F with sciatic neuropathy, chronic low back pain, RLL spiculated mass. Three-phase bone scan 02/17/2017 showed intertrochanteric osteoblastic lesion worrisome for bone metastasis. COMPARISON: 3-phase bone scan 02/17/2017; CT abdo/pelvis 02/18/2017 REPORT: Approximately 3 hours following intravenous administration of 24 mCi of Tc-99m MDP, delayed total body images in the anterior and posterior projections and selected spot images were obtained. Foci of markedly increased tracer activity are seen in the superior spine of the left scapula, T6, T8, T12, left 1st rib anteriorly, left 8th rib posteriorly, left 8th rib laterally, manubrium, sacrum, right iliac wing, right ilium superior to the acetabulum, left acetabulum, left intertrochanteric femur, mid aspect left femoral shaft and left distal lateral femoral condyle. No abnormal accumulation of tracer is seen in the soft tissues or urinary tract. IMPRESSION: Pattern of metastatic bone disease involving the thorax, spine, pelvis and left femur. Signed by: Dr. Nena Arango M.D. on 02/22/2017 7:55 PM
[2017-02-22 20:00] VITALS: BP 151/65
[2017-02-22] MEDS: SIMVASTATIN 40 MG TAB PO SCH (20:58)
[2017-02-22] MEDS: [UNRECOGNIZED DRUG - OTHER] SC SCH (20:59)
[2017-02-23] VITALS (8 sets, daily range): BP systolic 129–163; BP diastolic 61–72
[2017-02-23] MEDS: LEVOTHYROXINE SODIUM 75 MCG TAB PO SCH (05:41)
[2017-02-23] MEDS: PANTOPRAZOLE SODIUM 40 MG SUSPDR.PKT PO SCH (07:30)
[2017-02-23] MEDS: INSULIN REGULAR, HUMAN 100 UNIT/1 ML 3ML VIAL SQ SCH ×4 (07:30→20:34)
--- NOTE | 2017-02-23 08:27 | Consultation ---
DATE OF CONSULTATION: February 21, 2017 Pinky Couch is a 81-year-old white female who was been referred to me for evaluation of lesion of iliac bone. The patient had presented with being mostly in the back. Subsequently, the patient was found to have massive metastases to the bone. Subsequently, referred to me for further evaluation and treatment. HISTORY OF PAST ILLNESSES: History of congestive heart failure, history of coronary artery disease, history of diabetes mellitus, history of right foot and ankle infections, history of DVT and PE, IVC filter placement, history of hyperlipidemia, history of diabetic neuropathy. SOCIAL HISTORY: Noncontributory. FAMILY HISTORY: Noncontributory. ALLERGIES: REPORTED AMOXICILLIN, TETRACYCLINE, IODINE, PLAVIX. MEDICATIONS: At this time: 1. Iron. 2. Prednisone. 3. Tylenol with hydrocodone. 4. Allopurinol. 5. Simvastatin. 6. Isosorbide. 7. Protonix. 8. Synthroid. 9. Insulin. 10. Metoprolol. 11. Aspirin. 12. Nitroglycerin. 13. Ranolazine. 14. Lovenox 15. Fentanyl. REVIEW OF SYSTEMS HEENT: Normal. CARDIAC: History of coronary artery disease. RESPIRATORY: Normal. GI: Normal. : Normal. MUSCULOSKELETAL: Now has massive metastases to the bone. NEUROENDOCRINE: History of hypothyroidism. History of diabetes mellitus. PHYSICAL EXAMINATION GENERAL: A morbidly obese female. No adenopathy. HEART: Within normal limits. LUNGS: Clear. BREASTS: Normal. ABDOMEN: Obese. There is no hepatosplenomegaly. RECTAL: Vaginal examination deferred. CENTRAL NERVOUS SYSTEM: Essentially normal. EXTREMITIES: Reveals the patient to have chronic venous congestion of both lower extremities. LAB INVESTIGATIONS: Show a hemoglobin of 10.3, hematocrit 31.6, white count 9700, and platelets 259,000. BUN high at 50 and creatinine high at 1.6. Sodium 134, potassium 5, chloride 100, CO2 25, bilirubin 0.5, SGOT 16, SGPT 23, alkaline phosphatase high at 174. IMAGING: Shows the patient to have a CT scan of the abdomen and pelvis, which showed the patient to have diverticulosis coli, atrophied kidneys, atherosclerosis, IVC filter, lytic lesion in the roof of the right acetabulum and right iliac wing, lytic lesion of the posterior aspect of S1 wedging on the T11 vertebrae. There were small pleural effusions. The sternotomy wires were also seen. Total body bone scan reveals the patient to have fossae of activity in the left scapula at T8 and T12, left 1st rib, left 8th rib, manubrium, sacrum, right iliac vein and right ileum, left acetabular, left intertrochanteric femur, left femoral shaft, and left distal lateral femoral condyle. IMPRESSION 1. Right iliac wing metastases. 2. Right lower lobe mass described as 1.5 cm. However, not described again later. 3. Chronic obstructive pulmonary disease. 4. Left femur metastases. 5. Congestive heart failure. 6. Coronary artery disease with coronary artery bypass graft. 7. Hypertension. 8. Diabetes mellitus. 9. 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 10. Hyperlipidemia. 11. Hypothyroidism. 12. Anemia of chronic disease. 13. Chronic renal failure. 14. Hyperglobulinemia. 15. Hypoalbuminemia. PLAN, COMMENTS AND SUGGESTIONS: Suggest biopsy of the iliac wing. Quantitation of immunoglobulins was done. However, there is no monoclonal gammopathy. IgG 845, IgA 216, IgM low at 103. The treatment of this patient will depend on what the biopsy will show. This was discussed at length with the patient and Dr. Hooker. Job#: [id number] RI cc:CÉSAR PHELAN MD
[2017-02-23] MEDS: [UNRECOGNIZED DRUG - OTHER] PO SCH ×2 (09:00→17:00)
[2017-02-23] MEDS: LINZESS 72 MCG PO SCH (09:00)
[2017-02-23] MEDS: PREDNISONE 10 MG TAB PO SCH ×3 (09:00→20:32)
[2017-02-23] MEDS: ALLOPURINOL 100 MG TAB PO SCH ×2 (09:00→17:35)
[2017-02-23] MEDS: CYANOCOBALAMIN 1,000 MCG TAB PO SCH (09:00)
[2017-02-23] MEDS: DOCUSATE SODIUM 100 MG CAP PO SCH ×2 (09:00→17:35)
[2017-02-23] MEDS: ASPIRIN 81 MG CHEW TAB PO SCH (09:00)
[2017-02-23] MEDS ORDERED: FENTANYL CITRATE/PF 100MCG/2 ML INJ ONE (10:39)
[2017-02-23] MEDS ORDERED: MIDAZOLAM HCL 2 MG/2 ML VIAL ONE (10:58)
[2017-02-23] MEDS ORDERED: GELATIN SPONGE 12-7MM ONE (12:03)
[2017-02-23] MEDS: METOPROLOL TARTRATE 25 MG TAB PO SCH ×2 (12:57→17:35)
[2017-02-23] MEDS: ISOSORBIDE MONONITRATE 30 MG TAB CR PO SCH (12:57)
[2017-02-23] MEDS: RANOLAZINE 500 MG TABSR PO SCH ×2 (12:58→20:32)
--- NOTE | 2017-02-23 13:07 | Diagnostic Imaging Report ---
Date and Time: 02/23/2017 Procedure: CT-guided fine-needle aspiration and core biopsies of a lytic, expansile lesion of the right iliac wing kiln operator helper: Dr. Minaya Pre-operative diagnosis: Lytic lesion of the right iliac wing, concerning for metastatic disease Post-operative diagnosis: Lytic lesion of the right iliac wing, concerning for metastatic disease Conscious Sedation: Versed 1 mg and Fentanyl 50 mcg. The patient's heart rate and pulse oximetry were continuously monitored by the interventional radiology nurse. Blood pressure was monitored at 5 minute intervals. Additional Medications: Lidocaine 1% for local anesthesia Fluoroscopy time: 0 Contrast used: None Estimated blood loss: 20 cc Specimens: Fine-needle aspiration specimens x1, core biopsy specimens x4 Implants: None Blood products administered: None Condition at completion of procedure: Stable Disposition: Radiology holding, then return to floor Complications: Small right iliacus intramuscular hematoma, asymptomatic DISCUSSION: Informed consent for the procedure was obtained from the patient and documented in the medical record after discussion of risks and benefits. The patient was placed in the prone position on the CT couch and a marker grid was placed over the right lower back. After limited CT examination of the lower back a suitable percutaneous approach to the lytic lesion in the right iliac wing was identified and the overlying skin was marked. The area was prepped and draped in standard sterile fashion. 1% lidocaine was infiltrated into the skin and subcutaneous tissues. Then under intermittent CT guidance, a 16-gauge needle guide was advanced to the posterior surface of the lytic lesion. A single fine-needle aspiration specimen was obtained using a 20-gauge coaxial needle and submitted to on-site cytopathology personnel. Then a total of 4 core biopsy specimens were obtained using an 18-gauge, 2 cm throw core biopsy apparatus, with outside sales representative insurance CT images obtained. At the conclusion of sampling a small amount of Gelfoam slurry was injected through the needle guide as it was removed for augmentation of hemostasis. A sterile dressing was applied. The patient tolerated the procedure well. FINDINGS: Lytic, expansile lesion in the right iliac wing, as seen on prior CT abdomen and pelvis 02/18/2017 IMPRESSION: Successful CT-guided fine-needle aspiration and core biopsies of an expansile, lytic lesion in the right iliac wing. Signed by: Dr. Hayes Minaya M.D. on 02/23/2017 1:03 PM
--- NOTE | 2017-02-23 13:07 | Diagnostic Imaging Report ---
Date and Time: 02/23/2017 Procedure: CT-guided fine-needle aspiration and core biopsies of a lytic, expansile lesion of the right iliac wing contour band saw operator vertical: Dr. Minaya Pre-operative diagnosis: Lytic lesion of the right iliac wing, concerning for metastatic disease Post-operative diagnosis: Lytic lesion of the right iliac wing, concerning for metastatic disease Conscious Sedation: Versed 1 mg and Fentanyl 50 mcg. The patient's heart rate and pulse oximetry were continuously monitored by the interventional radiology nurse. Blood pressure was monitored at 5 minute intervals. Additional Medications: Lidocaine 1% for local anesthesia Fluoroscopy time: 0 Contrast used: None Estimated blood loss: 20 cc Specimens: Fine-needle aspiration specimens x1, core biopsy specimens x4 Implants: None Blood products administered: None Condition at completion of procedure: Stable Disposition: Radiology holding, then return to floor Complications: Small right iliacus intramuscular hematoma, asymptomatic DISCUSSION: Informed consent for the procedure was obtained from the patient and documented in the medical record after discussion of risks and benefits. The patient was placed in the prone position on the CT couch and a marker grid was placed over the right lower back. After limited CT examination of the lower back a suitable percutaneous approach to the lytic lesion in the right iliac wing was identified and the overlying skin was marked. The area was prepped and draped in standard sterile fashion. 1% lidocaine was infiltrated into the skin and subcutaneous tissues. Then under intermittent CT guidance, a 16-gauge needle guide was advanced to the posterior surface of the lytic lesion. A single fine-needle aspiration specimen was obtained using a 20-gauge coaxial needle and submitted to on-site cytopathology personnel. Then a total of 4 core biopsy specimens were obtained using an 18-gauge, 2 cm throw core biopsy apparatus, with patient financial representative CT images obtained. At the conclusion of sampling a small amount of Gelfoam slurry was injected through the needle guide as it was removed for augmentation of hemostasis. A sterile dressing was applied. The patient tolerated the procedure well. FINDINGS: Lytic, expansile lesion in the right iliac wing, as seen on prior CT abdomen and pelvis 02/18/2017 IMPRESSION: Successful CT-guided fine-needle aspiration and core biopsies of an expansile, lytic lesion in the right iliac wing. Signed by: Dr. Hayes Minaya M.D. on 02/23/2017 1:03 PM
[2017-02-23] MEDS: FENTANYL 25 MCG/HR PATCH TOP SCH (14:46)
[2017-02-23] MEDS: IRON SUCROSE 200 MG in SODIUM CHLORIDE 0.9% 100 ML 100 ML IV SCH (14:46)
[2017-02-23] MEDS: LIDOCAINE 5% PATCH TP SCH (14:58)
[2017-02-23] MEDS: HYDROMORPHONE 2MG/ML INJ IV PRN (15:09)
[2017-02-23] MEDS: PANTOPRAZOLE SOD 40 MG TABEC PO SCH (17:35)
[2017-02-23] MEDS: ENOXAPARIN 30 MG/0.3 ML SYR SC SCH (17:35)
[2017-02-23] MEDS ORDERED: CITRATE OF MAGNESIA 300ML BOTTLE PO ONE (18:45)
[2017-02-23] MEDS: METHYLNALTREXONE BROMIDE 12 MG/0.6 ML VIAL SQ SCH (19:38)
[2017-02-23] MEDS: [UNRECOGNIZED DRUG - OTHER] SC SCH (20:33)
[2017-02-23] MEDS: SIMVASTATIN 40 MG TAB PO SCH (20:33)
[2017-02-24] VITALS (8 sets, daily range): BP systolic 140–162; BP diastolic 63–70
[2017-02-24] MEDS: LEVOTHYROXINE SODIUM 75 MCG TAB PO SCH (05:41)
[2017-02-24 07:13] LABS: BASOPHILS % 0.2 % (0.0-1.0); EOSINOPHILS % 0.2 % (0.0-6.0); HEMATOCRIT 31.4 % (34.2-44.1); LYMPHOCYTES # (AUTO) 0.8 (1.0-3.2); LYMPHOCYTES % 7.7 % (18.0-39.1); MEAN CORPUSCULAR HEMOGLOBIN 32.1 pg (28-32); MEAN CORPUSCULAR HGB CONC 31.8 g/dL (31-35); MEAN CORPUSCULAR VOLUME 100.6 fL (81-99); MONOCYTES # (AUTO) 0.7 (0.2-0.8); MONOCYTES % 7.2 % (4.4-11.3); NEUTROPHILS # (AUTO) 8.3 (2.1-6.9); NEUTROPHILS % 82.7 % (38.7-80.0); PLATELET COUNT 246 x10e3/uL (140-360); RED BLOOD COUNT 3.12 x10e6/uL (3.6-5.1); RED CELL DISTRIBUTION WIDTH 14.1 % (11.7-14.4)
[2017-02-24 07:38] LABS: ALBUMIN 2.8 g/dL (3.5-5.0); ALBUMIN/GLOBULIN RATIO 0.8 (0.8-2.0); ANION GAP 13.2 mmol/L (8-16); CALCIUM 9.1 mg/dL (8.4-10.2); CREATININE, SERUM 1.55 mg/dL (0.57-1.11); POTASSIUM 5.2 mmol/L (3.5-5.1)
[2017-02-24] MEDS: INSULIN REGULAR, HUMAN 100 UNIT/1 ML 3ML VIAL SQ SCH ×4 (08:30→21:25)
[2017-02-24] MEDS: LINZESS 72 MCG PO SCH (09:00)
[2017-02-24] MEDS: METOPROLOL TARTRATE 25 MG TAB PO SCH ×2 (09:00→16:22)
[2017-02-24] MEDS: [UNRECOGNIZED DRUG - OTHER] PO SCH ×2 (09:00→16:22)
[2017-02-24] MEDS: ASPIRIN 81 MG CHEW TAB PO SCH (09:30)
[2017-02-24] MEDS: ISOSORBIDE MONONITRATE 30 MG TAB CR PO SCH (09:30)
[2017-02-24] MEDS: PANTOPRAZOLE SOD 40 MG TABEC PO SCH ×2 (09:30→16:22)
[2017-02-24] MEDS: CYANOCOBALAMIN 1,000 MCG TAB PO SCH (09:30)
[2017-02-24] MEDS: LIDOCAINE 5% PATCH TP SCH (09:30)
[2017-02-24] MEDS: RANOLAZINE 500 MG TABSR PO SCH ×2 (09:30→21:25)
[2017-02-24] MEDS: DOCUSATE SODIUM 100 MG CAP PO SCH ×2 (09:30→16:22)
[2017-02-24] MEDS: ALLOPURINOL 100 MG TAB PO SCH ×2 (09:30→16:22)
[2017-02-24] MEDS: PREDNISONE 10 MG TAB PO SCH ×3 (09:30→23:35)
[2017-02-24] MEDS ORDERED: HYDROMORPHONE 1MG/1ML INJ IV PRN (16:15)
[2017-02-24] MEDS: HYDROCODONE/APAP 5MG-325MG TAB PO PRN ×2 (16:22→23:35)
[2017-02-24] MEDS: ENOXAPARIN 30 MG/0.3 ML SYR SC SCH (16:22)
[2017-02-24] MEDS ORDERED: HYDROMORPHONE 2MG/ML INJ IV PRN (16:30)
[2017-02-24] MEDS: [UNRECOGNIZED DRUG - OTHER] SC SCH (21:00)
[2017-02-24] MEDS: SIMVASTATIN 40 MG TAB PO SCH (21:25)
[2017-02-25] VITALS (7 sets, daily range): BP systolic 139–172; BP diastolic 64–72
[2017-02-25] MEDS: HYDROCODONE/APAP 5MG-325MG TAB PO PRN (06:07)
[2017-02-25] MEDS: LEVOTHYROXINE SODIUM 75 MCG TAB PO SCH (06:07)
[2017-02-25] MEDS: INSULIN REGULAR, HUMAN 100 UNIT/1 ML 3ML VIAL SQ SCH ×3 (08:30→17:30)
[2017-02-25] MEDS: PANTOPRAZOLE SOD 40 MG TABEC PO SCH ×2 (08:30→17:30)
[2017-02-25] MEDS: [UNRECOGNIZED DRUG - OTHER] PO SCH ×2 (09:00→17:00)
[2017-02-25] MEDS: LINZESS 72 MCG PO SCH (09:00)
[2017-02-25] MEDS: RANOLAZINE 500 MG TABSR PO SCH (10:00)
[2017-02-25] MEDS: METOPROLOL TARTRATE 25 MG TAB PO SCH ×2 (10:00→17:30)
[2017-02-25] MEDS: CYANOCOBALAMIN 1,000 MCG TAB PO SCH (10:00)
[2017-02-25] MEDS: DOCUSATE SODIUM 100 MG CAP PO SCH ×2 (10:00→17:30)
[2017-02-25] MEDS: ISOSORBIDE MONONITRATE 30 MG TAB CR PO SCH (10:00)
[2017-02-25] MEDS: PREDNISONE 10 MG TAB PO SCH ×2 (10:00→15:00)
[2017-02-25] MEDS: ASPIRIN 81 MG CHEW TAB PO SCH (10:00)
[2017-02-25] MEDS: LIDOCAINE 5% PATCH TP SCH (10:00)
[2017-02-25] MEDS: ALLOPURINOL 100 MG TAB PO SCH ×2 (10:00→17:30)
[2017-02-25] MEDS ORDERED: MOVANTIK PO (17:21)
[2017-02-25] MEDS ORDERED: DILAUDID2 MG PO (17:22)
[2017-02-25] MEDS: ENOXAPARIN 30 MG/0.3 ML SYR SC SCH (17:30)
[2017-02-25] MEDS: METHYLNALTREXONE BROMIDE 12 MG/0.6 ML VIAL SQ SCH (18:30)
--- NOTE | 2017-03-01 04:19 | Discharge Summary ---
HOSPITAL COURSE: A 81-year-old female patient admitted with intractable pain to the lower back, hip, and legs. Patient was admitted and had an initial CT of the LS spine, showed a lytic lesion on the right iliac, and further workup revealed lytic lesion on the left hip. So, oncology consult was called. She had blood sent for protein electrophoresis and she also was seen by rehab physician, Dr. Chavarria, and neurology, Dr. Abraham. Had extensive workup for metastasis. Had a bone scan, showed metastatic bone disease involving thorax, spine, pelvis, and left femur. A CT-guided biopsy was done on the lesion. Biopsy is pending. Patient was discharged home with pain medications. Will follow up with Dr. Morocho as outpatient. DISCHARGE DIAGNOSES 1. Intractable pain from metastatic cancer, unknown primary. 2. Deconditioning. 3. Abdominal pain. 4. Ventral hernia, reducible. 5. Status post biopsy. DISCHARGE MEDICATIONS: Reconciled. CÉSAR PHELAN MD Job#: [id number] CF
== END 2017-02-25 19:30 | disposition home or self-care (01) | DRG 477 ==
LOC: ER 09:37 → IMCU 17:47 → OBSVTOIN 02-21 10:54 → MED/SURG 02-21 19:20
PROVIDERS: ADMIT Internal Medicine; ATTEND Internal Medicine
PROC: 0Q923ZX Drainage of Right Pelvic Bone, Percutaneous Approach, Diagnostic (ICD-10-PCS; principal; 2017-02-21)
PROC: 07DR3ZX Extraction of Iliac Bone Marrow, Percutaneous Approach, Diagnostic (ICD-10-PCS; 2017-02-21)
DX: C79.51 Secondary malignant neoplasm of bone (principal); I50.33 Acute on chronic diastolic (congestive) heart failure; E88.09 Other disorders of plasma-protein metabolism, not elsewhere classified; G62.9 Polyneuropathy, unspecified; E66.01 Morbid (severe) obesity due to excess calories; C80.1 Malignant (primary) neoplasm, unspecified; D63.8 Anemia in other chronic diseases classified elsewhere; D63.1 Anemia in chronic kidney disease; Z68.41 Body mass index [BMI] 40.0-44.9, adult; I13.0 Hypertensive heart and chronic kidney disease with heart failure and stage 1 through stage 4 chronic kidney disease, or unspecified chronic kidney disease; I25.10 Atherosclerotic heart disease of native coronary artery without angina pectoris; R77.1 Abnormality of globulin; E08.40 Diabetes mellitus due to underlying condition with diabetic neuropathy, unspecified; Z79.01 Long term (current) use of anticoagulants; Z79.4 Long term (current) use of insulin; E03.9 Hypothyroidism, unspecified; I12.9 Hypertensive chronic kidney disease with stage 1 through stage 4 chronic kidney disease, or unspecified chronic kidney disease; N18.9 Chronic kidney disease, unspecified; Z86.718 Personal history of other venous thrombosis and embolism; J44.9 Chronic obstructive pulmonary disease, unspecified; K42.9 Umbilical hernia without obstruction or gangrene; Z95.1 Presence of aortocoronary bypass graft; Z99.3 Dependence on wheelchair; G89.3 Neoplasm related pain (acute) (chronic); M51.17 Intervertebral disc disorders with radiculopathy, lumbosacral region; G89.4 Chronic pain syndrome
CPT/HCPCS: 20220; 36415; 71250; 72131; 74176; 74470; 77012; 77075; 78306; 78315; 80048; 80053; 81001; 82232; 82378; 82607; 82728; 82746; 82784; 82948; 83540; 84165; 84466; 84550; 85025; 87086; 88172; 88173; 88305; 88342; 93005; 96372; 96376; 99285; A9503; G0378; J1100; J1650; J1756; J2250; J2270; J2405